=== PATIENT | female | born 1965 | race Two or more races ===

== ENCOUNTER 2017-08-05 12:15 | Emergency (ER) | payer OTHER ==
[~2017-08-05] VITALS: Ht 152.4 cm; Wt 71.7 kg
[2017-08-05 12:45] VITALS: BP 146/74
--- NOTE | 2017-08-05 13:03 | Emergency Room Report ---
History of Present Illness General Chief Complaint: Pain Source: Patient Present Illness HPI The patient is a 51-year-old female presenting for pain after a metal pipe fell onto her head 3 days ago. She states that she was at work when this happened. She denies loss of consciousness or falling down at that time. Pain has continued and is a 7/10 dull ache primarily to the right face and neck. Worse with movement. She does admit to mild dizziness. She denies other symptoms including nausea, vomiting, numbness or tingling, blurred vision, difficulty concentrating, memory loss Patient History Past Medical History: see triage record Pertinent Family History: none Last Menstrual Period: post menapause Now: No Reviewed Nursing Documentation: PMH: Agreed, PSxH: Agreed Nursing Documentation-PMH Past Medical History: No History, Except For Hx Cancer: Yes - breast cancer Review of Systems All Other Systems: negative except mentioned in HPI Physical Exam Vital Signs Date Time Temp Pulse Resp B/P (MAP) Pulse Ox O2 Delivery O2 Flow Rate FiO2 08/05/17 12:33 97.3 17 146/74 98 Room Air Sp02 EP Interpretation: reviewed, normal General Appearance: no apparent distress, alert, GCS 15, non-toxic Head: normocephalic, atraumatic, other - TTP over the L scalp. No hematoma. No depression Eyes: bilateral eye normal inspection, bilateral eye PERRL ENT: hearing grossly normal, normal pharynx, no angioedema, normal voice Neck: full range of motion, supple/symm/no masses, tender lateral, tender midline Respiratory: chest non-tender, lungs clear, normal breath sounds, speaking full sentences Musculoskeletal: back normal, gait/station normal, normal range of motion Neurologic: alert, oriented x3, responsive, motor strength/tone normal, sensory intact, speech normal Psychiatric: judgement/insight normal, memory normal, mood/affect normal, no suicidal/homicidal ideation Skin: normal color, no rash, warm/dry, well hydrated Lymphatic: no adenopathy Medical Decision Making PA Attestation is my supervising physician. Patient management was discussed with my supervising physician Diagnostic Impression: Primary Impression: Scalp contusion Qualified Codes: S00.03XA - Contusion of scalp, initial encounter Additional Impression: Muscle strain ER Course The patient is a 51-year-old female presenting for pain after a metal pipe fell onto her head 3 days ago Differential diagnoses considered but not limited to: Concussion, contusion, intracranial hemorrhage, fracture, muscle strain, among others PE: NAD Head is NC/AT PERRL EOMI Neck is soft and supple. TTP over bilat paraspinal muscles and midline. No step- offs. CT scan of head and C-spine are both unremarkable. She will be discharged home with prescription for Motrin and Robaxin and needs to followup with her primary doctor. ER precautions are given CT/MRI/US Diagnostic Results CT/MRI/US Diagnostic Results #1: Imaging Test Ordered: CT C spine Impression unremarkable CT/MRI/US Diagnostic Results #2: Imaging Test Ordered: CT head Impression Unremarkable Last Vital Signs Date Time Temp Pulse Resp B/P (MAP) Pulse Ox O2 Delivery O2 Flow Rate FiO2 08/05/17 12:33 97.3 17 146/74 98 Room Air Status: improved Disposition: HOME, SELF-CARE Condition: Improved Scripts Methocarbamol* (ROBAXIN-750*) 750 Mg Tablet 750 MG PO TID, #21 TAB 0 Refills Prov: NADIA GONCALVES P.A. 08/05/17 Ibuprofen* (MOTRIN*) 600 Mg Tablet 600 MG ORAL Q8H Y for For Pain, #30 TAB 0 Refills Prov: NADIA GONCALVES P.A. 08/05/17 NADIA GONCALVES Aug 05, 2017 13:03
--- NOTE | 2017-08-05 14:09 | Diagnostic Imaging Report ---
Indication: PAIN, head and neck trauma x3 days Technique: Continuous helical CT scanning of the head was performed without intravenous contrast material. Axial and coronal 5 mm sections were generated. Radiation dose was minimized using automated exposure control Dose: Total Dose Length Product - DLP [address] Dose Index - CTDIvol(s) 70.38 mGy. Comparison: None Findings: The ventricular system is normal in size and configuration. There is no shift of midline structures. No abnormal extra-axial fluid collections are noted. There is no evidence of intracerebral bleeding. No other abnormal high or low density areas are noted within the brain. Intact calvarium. Visualized orbits and sinuses are unremarkable Impression: Normal CT scan of the head without contrast material. The CT scanner at [facility] is accredited by the [employer] and the scans are performed using protocols designed to limit radiation exposure to as low as reasonably achievable to attain images of sufficient resolution adequate for diagnostic evaluation. Noncontrast
--- NOTE | 2017-08-05 14:15 | Diagnostic Imaging Report ---
Indication: PAIN head trauma 2 days ago Technique: Spiral acquisitions obtained through the cervical spine. No IV contrast utilized. Multiplanar reconstructions were generated. Total dose length product today mGycm. CTDIvol(s) 14 mGy. Dose reduction achieved using automated exposure control Comparison: None Findings: Bony alignment is normal. No acute fractures. No dislocations. The disc spaces are preserved. There is facet degeneration diffusely bilaterally, most severe at C6-7 and C7-T1 on the left. At C3-4 and C4-5, there is mild right neural foraminal narrowing due to facet hypertrophy. No significant disc bulge or protrusion or spinal stenosis. At C6-7, there is mild left neural foraminal stenosis due to facet hypertrophy. No significant disc bulge or protrusion or spinal stenosis. At the remaining disc levels, no significant distal or protrusion, spinal stenosis, or neural foraminal narrowing demonstrated. The included extraspinal soft tissues are unremarkable. Impression: No acute bony trauma Mild degenerative changes, as detailed on a level basis above The CT scanner at [facility] is accredited by the [employer] and the scans are performed using protocols designed to limit radiation exposure to as low as reasonably achievable to attain images of sufficient resolution adequate for diagnostic evaluation.
[2017-08-05] MEDS ORDERED: ROBAXIN-750750 MG PO (14:22)
[2017-08-05] MEDS ORDERED: IBUPROFEN600 MG ORAL (14:22)
[2017-08-05 14:25] VITALS: BP 146/74
== END 2017-08-05 16:30 | disposition home or self-care (01) ==
LOC: EMR 13:01
DX: S00.03XA Contusion of scalp, initial encounter (principal); T14.8XXA Other injury of unspecified body region, initial encounter; W22.8XXA Striking against or struck by other objects, initial encounter; Y93.9 Activity, unspecified; Y92.9 Unspecified place or not applicable; R42 Dizziness and giddiness; Z85.3 Personal history of malignant neoplasm of breast
CPT/HCPCS: 70450; 72125; 99284